=== PATIENT | male | born 1950 | race Caucasian/White ===

== ENCOUNTER → 2020-03-21 | Outpatient (REF) | payer MEDICARE | LOC: M LAB REF 17:48 | PROVIDERS: ATTEND Physician Assistant | DX: L57.0 Actinic keratosis (principal); L81.4 Other melanin hyperpigmentation; L57.8 Other skin changes due to chronic exposure to nonionizing radiation; B07.9 Viral wart, unspecified | CPT/HCPCS: 11102; 11103; 17000; 17003; 17110; 88305; G0463 ==

== ENCOUNTER → 2021-03-27 | Outpatient (REF) | payer MEDICARE | LOC: M LAB REF 13:56 | PROVIDERS: ATTEND Physician Assistant | DX: C44.329 Squamous cell carcinoma of skin of other parts of face (principal); L57.0 Actinic keratosis | CPT/HCPCS: 11102; 11103; 17000; 88305; G0463 ==

== ENCOUNTER → 2021-05-28 | Outpatient (REF) | payer MEDICARE | LOC: M LAB REF 13:55 | PROVIDERS: ATTEND Physician Assistant | DX: C44.629 Squamous cell carcinoma of skin of left upper limb, including shoulder (principal) ==

== ENCOUNTER → 2021-06-21 | Outpatient (REF) | payer MEDICARE | LOC: M SFHCDERM 16:48 | PROVIDERS: ATTEND Dermatology | DX: C44.529 Squamous cell carcinoma of skin of other part of trunk (principal); C44.629 Squamous cell carcinoma of skin of left upper limb, including shoulder ==

== ENCOUNTER → 2024-11-22 | Outpatient (REF) | payer MEDICARE | LOC: M SFHCDERM 16:04 | PROVIDERS: ATTEND Physician Assistant | DX: C44.319 Basal cell carcinoma of skin of other parts of face (principal) ==